=== PATIENT | female | born 1985 | race Caucasian/White ===

== ENCOUNTER 2016-07-26 15:11 | Emergency (ER) | payer MEDICAID ==
[2016-07-26] MEDS ORDERED: ONDANSETRON 4 MG/2 ML VIAL IVP STA (15:46)
[2016-07-26] MEDS ORDERED: ACETAMINOPHEN IV (For NPO) 1,000 MG in SALINE 100 100ML.BAG IVPB STA (15:46)
[2016-07-26] MEDS ORDERED: SODIUM CHLORIDE 0.9% 1,000 ML IV STA ×2 (15:46)
--- NOTE | 2016-07-26 15:50 | ED ---
General Adult HPI - General Chief complaint: Nausea/Vomiting/Diarrhea Stated complaint: poss pneumonia/abdominal pain Time Seen by Provider: 07/26/16 15:39 Source: patient, RN notes reviewed Mode of arrival: ambulatory Limitations: no limitations - History of Present Illness Initial comments: Patient is a 31-year-old female who presents emergency room today with a chief complaint of fever and chills. Patient does admit that yesterday she was sick with symptoms of nausea and diarrhea. States multiple episodes of loose stool. States a few episodes of diarrhea this morning. States still feeling somewhat nauseated. States that she feels somewhat congested in her chest but has not had a cough. Does admit some sinus drainage. Denies any sore throat or ear pain. Patient does admit to chills. Denies any other complaints. Patient denies any shortness of breath, chest pain, back pain, vomiting, numbness or tingling, dysuria or hematuria, constipation or diarrhea, headaches or visual changes, or any other complaints. - Related Data Home Medications Medication Instructions Recorded Confirmed Ascorbic Acid [Vitamin C] 500 mg PO DAILY 07/26/16 07/26/16 Cranberry Fruit Concentrate 450 mg PO DAILY 07/26/16 07/26/16 [Cranberry] Lydia 500 mg PO DAILY 07/26/16 07/26/16 Previous Rx's Medication Instructions Recorded Ondansetron Odt [Zofran ODT] 4 mg PO Q8HR PRN #20 tab 07/26/16 Allergies Allergy/AdvReac Type Severity Reaction Status Date / Time Sulfa (Sulfonamide Allergy Rash/Hives Verified 07/26/16 16:10 Antibiotics) Review of Systems ROS Statement: Those systems with pertinent positive or pertinent negative responses have been documented in the HPI. ROS Other: All systems not noted in ROS Statement are negative. Past Medical History Past Medical History: No Reported History History of Any Multi-Drug Resistant Organisms: None Reported Past Surgical History: No Surgical Hx Reported Past Psychological History: No Psychological Hx Reported Smoking Status: Never smoker Past Alcohol Use History: None Reported Past Drug Use History: None Reported General Exam - General Exam Comments Initial Comments: General: The patient is awake and alert, in no distress, and does not appear acutely ill. Eye: Pupils are equal, round and reactive to light, extra-ocular movements are intact. No nystagmus. There is normal conjunctiva bilaterally. No signs of icterus. Ears, nose, mouth and throat: There are moist mucous membranes and no oral lesions. Neck: The neck is supple, there is no tenderness or JVD. Cardiovascular: There is a regular rate and rhythm. No murmur, rub or gallop is appreciated. Respiratory: Lungs are clear to auscultation, respirations are non-labored, breath sounds are equal. No wheezes, stridor, rales, or rhonchi. Gastrointestinal: No appearance exam. Normal bowel sounds. Soft on palpation. Patient does have mild tenderness to the epigastrium. No rebound tenderness. No guarding. No CVA tenderness. Musculoskeletal: Normal ROM, no tenderness. Strength 5/5. Sensation intact. Pulses equal bilaterally 2+. Neurological: A&O x 3. CN II-XII intact, There are no obvious motor or sensory deficits. Coordination appears grossly intact. Speech is normal. Skin: Skin is warm and dry and no rashes or lesions are noted. Psychiatric: Cooperative, appropriate mood & affect, normal judgment. Limitations: no limitations Course Vital Signs 07/26/16 07/26/16 15:18 17:06 Temperature 101.5 F H 98.8 F Pulse Rate 102 H 96 Respiratory 20 16 Rate Blood Pressure 133/77 111/59 O2 Sat by Pulse 98 96 Oximetry Medical Decision Making - Medical Decision Making Patient reexamined at this time shows no signs of distress. Her labs been reviewed. White count 11,000. Patient does admit to diarrhea yesterday. Patient feeling better at this time. Abdomen soft nontender. Denies any nausea. Denies any abdominal pain. Denies any chest pain or congestion. Chest x-ray negative. X-ray of the abdomen reviewed are unremarkable. Influenza negative. Patient's urinalysis no sign of infection but 4+ ketones. Patient given proximally 2 L of fluids here in the emergency room. Patient will be discharged home and she is feeling better at this time. She is advised to continue Tylenol or ibuprofen for any fevers. Temperature recheck at this time is 98.8F. Patient will be discharged advised follow-up the family doctor over the next 2 days. Patient advised return here to emergency room if any symptoms increase or worsen or for any other concerns. She'll be discharged home with Zofran for her symptoms. Advised to increase oral fluids. Patient states understanding and is in agreement. - Lab Data Result diagrams: 07/26/16 16:10 07/26/16 16:10 Lab Results 07/26/16 07/26/16 07/26/16 Range/Units 15:45 16:10 16:10 WBC 11.1 H (3.8-10.6) k/uL RBC 4.66 (3.80-5.40) m/uL Hgb 14.9 (11.4-16.0) gm/dL Hct 44.8 (34.0-46.0) % MCV 96.1 (80.0-100.0) fL MCH 31.9 (25.0-35.0) pg MCHC 33.2 (31.0-37.0) g/dL RDW 12.1 (11.5-15.5) % Plt Count 156 (150-450) k/uL Neutrophils % 86 % Lymphocytes % 8 % Monocytes % 5 % Eosinophils % 0 % Basophils % 0 % Neutrophils # 9.6 H (1.3-7.7) k/uL Lymphocytes # 0.9 L (1.0-4.8) k/uL Monocytes # 0.6 (0-1.0) k/uL Eosinophils # 0.0 (0-0.7) k/uL Basophils # 0.0 (0-0.2) k/uL Sodium 141 (137-145) mmol/L Potassium 3.5 (3.5-5.1) mmol/L Chloride 103 (98-107) mmol/L Carbon Dioxide 24 (22-30) mmol/L Anion Gap 14 mmol/L BUN 11 (7-17) mg/dL Creatinine 0.60 (0.52-1.04) mg/dL Est GFR (MDRD) Af Amer >60 (>60 ml/min/1.73 sqM) Est GFR (MDRD) Non-Af >60 (>60 ml/min/1.73 sqM) Glucose 82 (74-99) mg/dL Calcium 9.3 (8.4-10.2) mg/dL Total Bilirubin 0.9 (0.2-1.3) mg/dL AST 24 (14-36) U/L ALT 27 (9-52) U/L Alkaline Phosphatase 62 (38-126) U/L Total Protein 7.9 (6.3-8.2) g/dL Albumin 4.6 (3.5-5.0) g/dL Amylase <30 L (30-110) U/L Lipase 29 (23-300) U/L Urine Color Urine Appearance (Clear) Urine pH (5.0-8.0) Ur Specific Olin (1.001-1.035) Urine Protein (Negative) Urine Glucose (UA) (Negative) Urine Ketones (Negative) Urine Blood (Negative) Urine Nitrate (Negative) Urine Bilirubin (Negative) Urine Urobilinogen (<2.0) mg/dL Ur Leukocyte Esterase (Negative) Urine RBC (0-5) /hpf Urine WBC (0-5) /hpf Ur Squamous Epith Cells (0-4) /hpf Amorphous Sediment (None) /hpf Hyaline Casts (0-2) /lpf Urine Mucus (None) /hpf Urine HCG, Qual (Not Detectd) Influenza Type A RNA Not Detected (Not Detectd) Influenza Type B (PCR) Not Detected (Not Detectd) 07/26/16 07/26/16 Range/Units 16:10 16:10 WBC (3.8-10.6) k/uL RBC (3.80-5.40) m/uL Hgb (11.4-16.0) gm/dL Hct (34.0-46.0) % MCV (80.0-100.0) fL MCH (25.0-35.0) pg MCHC (31.0-37.0) g/dL RDW (11.5-15.5) % Plt Count (150-450) k/uL Neutrophils % % Lymphocytes % % Monocytes % % Eosinophils % % Basophils % % Neutrophils # (1.3-7.7) k/uL Lymphocytes # (1.0-4.8) k/uL Monocytes # (0-1.0) k/uL Eosinophils # (0-0.7) k/uL Basophils # (0-0.2) k/uL Sodium (137-145) mmol/L Potassium (3.5-5.1) mmol/L Chloride (98-107) mmol/L Carbon Dioxide (22-30) mmol/L Anion Gap mmol/L BUN (7-17) mg/dL Creatinine (0.52-1.04) mg/dL Est GFR (MDRD) Af Amer (>60 ml/min/1.73 sqM) Est GFR (MDRD) Non-Af (>60 ml/min/1.73 sqM) Glucose (74-99) mg/dL Calcium (8.4-10.2) mg/dL Total Bilirubin (0.2-1.3) mg/dL AST (14-36) U/L ALT (9-52) U/L Alkaline Phosphatase (38-126) U/L Total Protein (6.3-8.2) g/dL Albumin (3.5-5.0) g/dL Amylase (30-110) U/L Lipase (23-300) U/L Urine Color Yellow Urine Appearance Cloudy H (Clear) Urine pH 5.5 (5.0-8.0) Ur Specific Olin 1.030 (1.001-1.035) Urine Protein 1+ H (Negative) Urine Glucose (UA) Negative (Negative) Urine Ketones 4+ H (Negative) Urine Blood Negative (Negative) Urine Nitrate Negative (Negative) Urine Bilirubin Negative (Negative) Urine Urobilinogen 2.0 (<2.0) mg/dL Ur Leukocyte Esterase Negative (Negative) Urine RBC 2 (0-5) /hpf Urine WBC 2 (0-5) /hpf Ur Squamous Epith Cells 6 H (0-4) /hpf Amorphous Sediment Occasional H (None) /hpf Hyaline Casts 3 H (0-2) /lpf Urine Mucus Many H (None) /hpf Urine HCG, Qual Not Detected (Not Detectd) Influenza Type A RNA (Not Detectd) Influenza Type B (PCR) (Not Detectd) Disposition Clinical Impression: Acute diarrhea Disposition: HOME SELF-CARE Condition: Good Instructions: Acute Diarrhea (ED) Additional Instructions: Please use medication as discussed. Please follow-up with family doctor in the next 2 days of symptoms have not improved. Please return to emergency room if the symptoms increase or worsen or for any other concerns. Prescriptions: Ondansetron Odt [Zofran ODT] 4 mg PO Q8HR PRN #20 tab PRN Reason: Nausea Time of Disposition: 17:54
[2016-07-26 16:35] LABS: Amorphous Sediment,Urine Occasional /hpf; Appearance,Urine Cloudy (Clear); Bilirubin,Urine Negative (Negative); Glucose,Urine (UA) Negative (Negative); Ketones,Urine 4+ (Negative); Leukocyte Esterase,Urine Negative (Negative); Mucus,Urine Many /hpf; Nitrite,Urine Negative (Negative); PH, Urine 5.5 (5.0-8.0); Particle Count 7541; Protein,Urine 1+ (Negative); RBC,Urine 2 /hpf (0-5); Squamous Epithelial Cell,Urine 6 /hpf (0-4); UA Billing (MACRO vs. MICRO) MICRO; WBC,Urine 2 /hpf (0-5)
--- NOTE | 2016-07-26 16:38 | XR ---
EXAMINATION TYPE: XR chest 2V DATE OF EXAM: 07/26/2016 4:35 PM COMPARISON: NONE HISTORY: Shortness of breath TECHNIQUE: Frontal and lateral views of the chest are obtained. FINDINGS: There is no focal air space opacity, pleural effusion, or pneumothorax seen. The cardiac silhouette size is within normal limits. The osseous structures are intact. IMPRESSION: No acute cardiopulmonary process.
[2016-07-26 16:39] LABS: ALT 27 U/L (9-52); AST 24 U/L (14-36); Alkaline Phosphatase 62 U/L (38-126); Amylase <30 U/L (30-110); Anion Gap 14 mmol/L; Basophils % (A) 0 %; Blood Urea Nitrogen 11 mg/dL (7-17); CH 32.5; CHCM 33.9; Calcium 9.3 mg/dL (8.4-10.2); Carbon Dioxide 24 mmol/L (22-30); Chloride 103 mmol/L (98-107); Eosinophils % (A) 0 %; Glucose 82 mg/dL (74-99); HCT 44.8 % (34.0-46.0); HDW 2.24; HGB 14.9 gm/dL (11.4-16.0); Luc # (Auto) 0.08; Luc % (Auto) 1; Lymphocytes # (A) 0.9 k/uL (1.0-4.8); Lymphocytes % (A) 8 %; MCH 31.9 pg (25.0-35.0); MCHC 33.2 g/dL (31.0-37.0); MCV 96.1 fL (80.0-100.0); Mean Platelet Volume 7.4; Monocytes # (A) 0.6 k/uL (0-1.0); Monocytes % (A) 5 %; Neutrophils # (A) 9.6 k/uL (1.3-7.7); Neutrophils % (A) 86 %; Non-African American GFR(MDRD) >60 (>60 ml/min/1.73 sqM); Potassium 3.5 mmol/L (3.5-5.1); RBC 4.66 m/uL (3.80-5.40); RDW 12.1 % (11.5-15.5); Sodium 141 mmol/L (137-145); Total Bilirubin 0.9 mg/dL (0.2-1.3); Total Protein 7.9 g/dL (6.3-8.2); WBC 11.1 k/uL (3.8-10.6); WBC (Perox) 10.97
--- NOTE | 2016-07-26 16:39 | XR ---
EXAMINATION TYPE: XR KUB DATE OF EXAM: 07/26/2016 4:35 PM COMPARISON: NONE HISTORY: Pain TECHNIQUE: Single supine KUB image of the abdomen is obtained FINDINGS: Small bowel demonstrates no evidence for dilatation or air fluid levels. Gas and fecal material is seen in non-distended colon. No convincing evidence for pneumoperitoneum. No unusual calcifications. The lung bases are clear. The osseous structures are intact. IMPRESSION: 1. Overall nonobstructive bowel gas pattern.
[2016-07-26 18:33] VITALS: BP 105/56; PULSE 52; RESP 16; TEMP 98
== END 2016-07-26 18:31 | disposition home or self-care (01) ==
LOC: EC 15:11
DX: R19.7 Diarrhea, unspecified (principal); R10.13 Epigastric pain; R50.9 Fever, unspecified; R11.0 Nausea; Z79.899 Other long term (current) drug therapy; Z88.2 Allergy status to sulfonamides
CPT/HCPCS: 36415; 80053; 82150; 83690; 85025; 81001; 81025; 87040; 87086; 87077; 87186; 87502; 71020; 74000; 99284; 96374; 96375; 96361 ×2; J2405; J0131

== ENCOUNTER → 2019-08-02 | Outpatient (CLI) | payer OTHER ==
--- NOTE | 2019-08-02 09:00 | US ---
"EXAMINATION TYPE: Transabdominal DATE OF EXAM: 08/02/2019 8:17 AM COMPARISON: NONE CLINICAL HISTORY: O76 abnormality in heart rate and rhythm. Patient was told yesterday that the re was no heart tones at another facility. Bleeding EXAM PERFORMED: Transvaginal (TV) and Transabdominal (TA) EXAM MEASUREMENTS: GESTATIONAL AGE / DATING Physician Established: Not yet established Dates by LMP: Unsure Dates by First Scan: No scan at this facility Dates by Current Scan for: (8 weeks/4 days) EDC: demise MATERNAL ANATOMY Uterus: 12.5 x 5.5 x 9.4 cm Right Ovary: 2.2 x 1.8 x 1.6 cm Left Ovary: 2.1 x 2.0 x 1.2 cm Post CDS / Adnexa: wnl Presence of free fluid: No Presence of corpus luteal cyst: Yes, right ovary measuring 1.5 cm Presence of subchorionic bleed: No GESTATION / SURVEY CRL: 1.9 cm (8 weeks/4 days) Yolk Sac (normal less than 6mm): 3 mm IUP: Demise demise measuring 8 weeks/4 days IMPRESSION: 1. pole measures 8 weeks 4 days gestation based on the current crown-rump length. No cardiac ac tivity is observed findings can be compatible with intrauterine demise. A Yellow level critical message alert has been initiated for Yobani Tejada MD via the [employer] 36 0 | Critical Results System on 08/02/2019 8:58 AM. This message alert has been sent to Yobani Tejada MD via the preferences provided by the clinician for the receipt of Radiology Critical Findings. [facility] ID [id number]."
== END | disposition home or self-care (01) ==
LOC: RADUSWWP 07:42
PROVIDERS: ATTEND Obstetrics & Gynecology
DX: O76 Abnormality in fetal heart rate and rhythm complicating labor and delivery (principal); Z3A.08 8 weeks gestation of pregnancy
CPT/HCPCS: 76801; 76817

== ENCOUNTER → 2019-08-06 | Outpatient (CLI) | payer OTHER ==
--- NOTE | 2019-08-06 15:11 | US ---
EXAMINATION TYPE: Transabdominal DATE OF EXAM: 08/06/2019 2:52 PM COMPARISON: US CLINICAL HISTORY: 046.91 Bleeding. Pt states heavy bleeding, passing clots and tissue EXAM PERFORMED: Transabdominal (TA) EXAM MEASUREMENTS: GESTATIONAL AGE / DATING Physician Established: Not established Dates by LMP: (7 weeks/1 days) EDC: 03/23/2020 Dates by First Scan: (9 weeks/2 days) Dates by Current Scan for: No IUP seen at this time MATERNAL ANATOMY Uterus: 11.9 x 6.1 x 6.9 cm Right Ovary: 2.4 x 2.0 x 2.1 cm Left Ovary: 2.2 x 1.8 x 1.8 cm Post CDS / Adnexa: wnl Presence of free fluid: No GESTATION / SURVEY IUP: No IUP seen at this time, endometrium thickened and heterogeneous= 2.1 cm thick/ area of increa sed blood flow fundal portion of endometrium Results called to Bryan at Dr's office at time of exam IMPRESSION: The endometrium is thickened measuring 2.1 cm with hypervascular flow. Consider endometri oid is or retained products of conception in this patient with recent spontaneous .
[2019-08-06 15:57] LABS: Basophils % (A) 0 %; Eosinophils # (A) 0.1 k/uL (0-0.7); Eosinophils % (A) 1 %; HCT 36.2 % (34.0-46.0); HGB 11.8 gm/dL (11.4-16.0); Lymphocytes # (A) 2.4 k/uL (1.0-4.8); Lymphocytes % (A) 33 %; MCH 31.9 pg (25.0-35.0); MCHC 32.6 g/dL (31.0-37.0); MCV 97.8 fL (80.0-100.0); Mean Platelet Volume 7.7; Monocytes # (A) 0.3 k/uL (0-1.0); Monocytes % (A) 4 %; Neutrophils # (A) 4.5 k/uL (1.3-7.7); Neutrophils % (A) 61 %; Platelet Count 193 k/uL (150-450); RDW 11.9 % (11.5-15.5); WBC 7.5 k/uL (3.8-10.6)
== END | disposition home or self-care (01) ==
LOC: RADUSWWP 14:30
PROVIDERS: ATTEND Obstetrics & Gynecology
DX: O03.9 Complete or unspecified spontaneous abortion without complication (principal)
CPT/HCPCS: 76801; 84702; 85025; 86850; 86870; 86880; 86900; 86901

== ENCOUNTER 2023-07-17 10:02 | Inpatient (IN) | payer OTHER ==
[2023-07-17] MEDS ORDERED: METHYLERGONOVINE 0.2 MG/ML 1 ML AMP IM PRN (11:26)
[2023-07-17] MEDS ORDERED: CARBOPROST TROMETHAMINE 250 MCG/ML 1 ML AMP IM PRN (11:26)
[2023-07-17] MEDS ORDERED: TRANEXAMIC 1,000 MG/100ML-NACL 1,000 MG in EMPTY BAG 1 BAG IV PRN (11:26)
[2023-07-17] MEDS ORDERED: miSOPROStoL 200 MCG TAB PO PRN (11:26)
[2023-07-17] MEDS ORDERED: LIDOCAINE 0.5% (PF) 5 MG/ML (50 ML SDV) SQ PRN (11:26)
[2023-07-17] MEDS ORDERED: TERBUTALINE 1 MG/ML VIAL SQ PRN (11:26)
[2023-07-17] MEDS ORDERED: OXYTOCIN 10 UNIT/ML 1 ML VIAL IM PRN (11:26)
[2023-07-17] MEDS ORDERED: NALBUPHINE 10 MG/ML (10 ML MDV) IV PRN (11:29)
[2023-07-17] MEDS: LACTATED RINGERS 1,000 ML IV SCH (11:30)
[2023-07-17] MEDS ORDERED: OXYTOCIN 30 UNITS/500 ML NS 30 UNIT in SALINE 1 500ML.BAG IV SCH (11:30)
[2023-07-17 12:27] LABS: Basophils % (A) 0 %; Eosinophils % (A) 0 %; HCT 39.3 % (34.0-46.0); Lymphocytes # (A) 1.6 k/uL (1.0-4.8); Lymphocytes % (A) 19 %; MCH 31.6 pg (25.0-35.0); MCHC 33.2 g/dL (31.0-37.0); MCV 95.2 fL (80.0-100.0); Mean Platelet Volume 10.8; Monocytes # (A) 0.3 k/uL (0-1.0); Monocytes % (A) 4 %; Neutrophils # (A) 6.4 k/uL (1.3-7.7); Neutrophils % (A) 75 %; Platelet Count 141 k/uL (150-450); RBC 4.12 m/uL (3.80-5.40); RDW 13.5 % (11.5-15.5); WBC 8.6 k/uL (3.8-10.6)
[2023-07-17] MEDS: OXYTOCIN 30 UNITS/500 ML NS 30 UNIT in SALINE 1 500ML.BAG IV SCH (12:40)
[2023-07-17] MEDS ORDERED: ACETAMINOPHEN TAB 325 MG TAB PO PRN (12:50)
[2023-07-17] MEDS ORDERED: diphenhydrAMINE 25 MG CAP PO PRN (12:50)
[2023-07-17] MEDS ORDERED: SIMETHICONE 80 MG CHEWABLE PO PRN (12:50)
[2023-07-17] MEDS ORDERED: ZOLPIDEM 5 MG TAB PO PRN (12:50)
[2023-07-17] MEDS ORDERED: BENZOCAINE/MENTHOL SPRAY 1 GM/SPRAY AEROSOL TOPICAL PRN (12:50)
[2023-07-17] MEDS ORDERED: diphenhydrAMINE 50 MG CAP PO PRN (12:50)
[2023-07-17] MEDS ORDERED: HYDROCORTISONE 2.5% RECTAL CREAM 30 GM TUBE RECTAL PRN (12:50)
[2023-07-17] MEDS ORDERED: diphenhydrAMINE 50 MG/ML 1 ML VIAL IVP PRN ×2 (12:50)
[2023-07-17] MEDS ORDERED: LANOLIN CREAM 5 GM TUBE TOPICAL PRN (12:50)
--- NOTE | 2023-07-17 12:52 | P.HPOB ---
History of Present Illness H&P Date: 07/17/23 Chief Complaint: 41 weeks, labor This is a 38-year-old 5 para 4-0-0-4 at 41-0/7 weeks who presents to labor and delivery with complaints of contractions. Patient stated contractions began early this morning and became more regular therefore she headed into the hospital for evaluation. Patient was noted to be 4 to 5 cm upon admission. Patient noted good movement, questionable rupture of membranes with positive AmniSure in triage. care has been essentially uncomplicated, on blood work this blood patient is a blood type of a negative, rubella status immune, hepatitis B surface engine negative, HIV negative, RPR is nonreactive, group B strep culture was negative. Review of Systems Constitutional: Denies chills, Denies fatigue, Denies fever Ears, nose, mouth and throat: Denies headache Cardiovascular: Denies leg edema Respiratory: Denies dyspnea Gastrointestinal: Denies nausea, Denies vomiting Genitourinary: Reports Past Medical History Past Medical History: Diabetes Mellitus, No Reported History Additional Past Medical History / Comment(s): gestational diabetes History of Any Multi-Drug Resistant Organisms: ESBL, None Reported Date of last positivie culture/infection: 07/26/16 E. coli ESBL MDRO Source:: Urine Past Surgical History: No Surgical Hx Reported Past Anesthesia/Blood Transfusion Reactions: No Reported Reaction Past Psychological History: No Psychological Hx Reported Smoking Status: Never smoker Past Alcohol Use History: None Reported, Rare Past Drug Use History: None Reported - Past Family History Mother Family Medical History: Diabetes Mellitus Additional Family Medical History / Comment(s): A-fib Medications and Allergies Home Medications Medication Instructions Recorded Confirmed Type Pnv No.95/Ferrous Fum/Folic AC 1 each PO DAILY 08/03/19 07/17/23 History [ Multivitamin Tablet] Allergies Allergy/AdvReac Type Severity Reaction Status Date / Time Sulfa (Sulfonamide Allergy Rash/Hives Verified 06/21/23 14:36 Antibiotics) Exam Osteopathic Statement: *. No significant issues noted on an osteopathic st ructural exam other than those noted in the History and Physical/Consult. Vital Signs Temp Pulse Resp BP Pulse Ox 07/17/23 10:32 97.2 F L 93 16 153/95 97 Intake and Output 07/16/23 07/17/23 07/17/23 22:59 06:59 14:59 Other: Weight 78.471 kg Targeted physical exam is performed in the state General is a well-nourished well-developed female with labor, breathing appears nonlabored, abdomen is gravid and appropriate for gestational age, on cervical exam she is 9 cm a bulging bag of fluid is appreciated and amniotomy is performed revealing clear fluid. heart tones are noted to be category 1 and she is milagro every 2 to 3 minutes. Results Result Diagrams: 07/17/23 12:14 Assessment and Plan (1) Post-dates Current Visit: Yes Status: Acute Code(s): O48.0 - POST-TERM SNOMED Code(s): 78621253 Plan: 38-year-old G5, P4 at 41-0/7 weeks presents with regular painful contractions, after active labor. Patient is admitted with expectant management. Options for analgesia are discussed and she will consider. Anticipate spontaneous vaginal delivery.
--- NOTE | 2023-07-17 12:55 | P.PROBDLV ---
Vaginal Delivery Note - . Vaginal Delivery Note: Findings: viable male infant delivered at 1240, weight of 7 pounds 15 ounces, Apgars of 9 and 9 at 1 and 5 minutes respectively. 38-year-old 5 para 3-0-1-3 that presented to labor and delivery at 41- 0/7 weeks with complaints of regular painful contraction and spontaneous rupture of membranes around 5 AM. Patient was admitted to labor and delivery, AmniSure was noted to be positive with confirmation of rupture of membranes. Patient declined analgesia progressed to 9 cm bulging bag of water was appreciated amniotomy was performed and clear fluid was obtained. Patient progressed quickly to complete began pushing and had a normal spontaneous vaginal delivery of a viable male infant at 1240, loose nuchal cord was appreciated and delivered through. Continuous cry was noted at . Weight of 7 pounds 15 ounces, Apgars of 9 and 9 at 1 and 5 minutes respectively. After 2-minute delay the umbilical cord was doubly clamped and cut and the placenta was delivered spontaneously intact with a three-vessel cord being noted. On inspection the patient's vaginal vault a small perineal laceration was appreciated this was injected with lidocaine and repaired with 1 [id number] suture of 0 Vicryl. Hemostasis was appreciated after closure. Uterus is noted to be firm and below the umbilicus. All counts were to be correct x 2. Patient and tolerated delivery well and resting comfortably.
[2023-07-17] MEDS: IBUPROFEN 600 MG TAB PO SCH (17:40)
[2023-07-17] MEDS: SENNOSIDES-DOCUSATE SODIUM 1 EACH TAB PO SCH (20:05)
[2023-07-18] MEDS: PRENATAL VIT-IRON-FOLIC ACID 1 EACH TABLET PO SCH (08:41)
--- NOTE | 2023-07-18 09:28 | P.DS ---
Providers Date of admission: 07/17/23 11:01 Expected date of discharge: 07/18/23 Attending physician: Yobani Tejada Primary care physician: Stated None - Discharge Diagnosis(es) (1) Post-dates Current Visit: Yes Status: Acute (2) Normal spontaneous vaginal delivery Current Visit: No Status: Acute Hospital Course: The patient is a 38-year-old 5 para 4004 admitted at 41-0/7 weeks by good dating parameters in active labor. Her has been uncomplicated and she has had reassuring testing following her due date. She presents with all signs reassuring, category 1 heart rate tracing in labor with positive for rupture of membranes for clear fluid. On labor and delivery, she progressed quickly to complete and pushed to a normal spontaneous vaginal delivery of a viable 7 lbs. 15 oz. baby boy with Apgars of 9 at 1 minute and 9 at 5 in its. Her course was unremarkable with vital signs being stable and her temperature was afebrile throughout. She was deemed stable for discharge on day #1 was discharged home to follow-up in the office in 6 weeks' time routinely. Discharge instructions included calling for any significantly increased bleeding or foul-smelling lochia, significantly increased fever abdominal pain, perineal complaints, breast complaints, or anything else that concerned her. She understood her instructions and agrees follow up as noted above. Discharge medications included continued vitamins as she has opted to breast-feed. She was otherwise to use [id number] analgesic pain medications as needed. Maternal blood type is Rh- and cord blood was sent for evaluation for the necessity of RhoGAM prior to discharge. Rubella status is immune. Procedures: #1. Normal spontaneous vaginal delivery Patient Condition at Discharge: Stable Plan - Discharge Summary New Discharge Prescriptions: No Action Pnv No.95/Ferrous Fum/Folic AC [ Multivitamin Tablet] 1 each PO DAILY Discharge Medication List Pnv No.95/Ferrous Fum/Folic AC [ Multivitamin Tablet] 1 each PO DAILY 08/03/19 [History] Follow up Appointment(s)/Referral(s): Yobani Tejada MD [STAFF PHYSICIAN] - 6 Weeks Discharge Disposition: HOME SELF-CARE
[2023-07-18 12:05] VITALS: BP 121/65; PULSE 81; RESP 16; TEMP 98.3
== END 2023-07-18 16:05 | disposition home or self-care (01) | DRG 560 ==
LOC: FBPOP 10:02 → 4FBP 11:01
PROVIDERS: ADMIT Obstetrics & Gynecology Obstetrics; ATTEND Obstetrics & Gynecology
PROC: 10E0XZZ Delivery of Products of Conception, External Approach (ICD-10-PCS; principal; 2023-07-17)
PROC: 0HQ9XZZ Repair Perineum Skin, External Approach (ICD-10-PCS; 2023-07-17)
DX: O48.0 Post-term pregnancy (principal); Z37.0 Single live birth; O24.420 Gestational diabetes mellitus in childbirth, diet controlled; O69.81X0 Labor and delivery complicated by cord around neck, without compression, not applicable or unspecified; O70.0 First degree perineal laceration during delivery; Z88.2 Allergy status to sulfonamides; Z87.891 Personal history of nicotine dependence; Z3A.41 41 weeks gestation of pregnancy
CPT/HCPCS: 59025; 84112; 85025; 86850; 86900; 86901; 99213

== ENCOUNTER 2024-05-16 19:45 | Emergency (ER) | payer OTHER ==
[2024-05-16 20:56] LABS: Appearance,Urine Turbid (Clear); Bacteria,Urine Many /hpf; Bilirubin,Urine Negative (Negative); Blood,Urine Large (Negative); Color,Urine Yellow; Glucose,Urine (UA) Negative (Negative); Ketones,Urine 1+ (Negative); Leukocyte Esterase,Urine Large (Negative); Mucus,Urine Moderate /hpf; Nitrite,Urine Positive (Negative); PH, Urine 5.5 (5.0-8.0); Protein,Urine 2+ (Negative); RBC,Urine >182 /hpf (0-5); Squamous Epithelial Cell,Urine 3 /hpf (0-4); Urobilinogen,Urine <2.0 mg/dL (<2.0); WBC,Urine >182 /hpf (0-5)
--- NOTE | 2024-05-16 21:36 | ED ---
Female Urogenital HPI - General Chief complaint: Urogenital Stated complaint: urogenital Time Seen by Provider: 05/16/24 20:12 Source: patient Mode of arrival: ambulatory Limitations: no limitations - History of Present Illness Initial comments: 39-year-old female presenting with concern for UTI. Patient reports that 2 weeks ago she had some burning with urination, states that she was drinking cranberry juice and thought it would go away. Now patient is having burning with urination as well as hematuria and lower back pain. She is having some nausea, no vomiting. No fever. No diarrhea. - Related Data Home Medications Medication Instructions Recorded Confirmed Pnv No.95/Ferrous Fum/Folic AC 1 each PO DAILY 08/03/19 07/17/23 [ Multivitamin Tablet] Previous Rx's Medication Instructions Recorded Cephalexin [Keflex] 500 mg PO Q6HR 10 Days #40 cap 05/16/24 Allergies Allergy/AdvReac Type Severity Reaction Status Date / Time Sulfa (Sulfonamide Allergy Rash/Hives Verified 05/16/24 19:55 Antibiotics) Review of Systems ROS Statement: Those systems with pertinent positive or pertinent negative responses have been documented in the HPI. ROS Other: All systems not noted in ROS Statement are negative. Past Medical History Past Medical History: Diabetes Mellitus, No Reported History Additional Past Medical History / Comment(s): gestational diabetes History of Any Multi-Drug Resistant Organisms: ESBL, None Reported Date of last positivie culture/infection: 07/26/16 E. coli ESBL MDRO Source:: Urine Past Surgical History: No Surgical Hx Reported Past Anesthesia/Blood Transfusion Reactions: No Reported Reaction Past Psychological History: No Psychological Hx Reported Smoking Status: Never smoker Past Alcohol Use History: Rare Past Drug Use History: None Reported - Past Family History Mother Family Medical History: Diabetes Mellitus Additional Family Medical History / Comment(s): A-fib General Exam Limitations: no limitations General appearance: alert, in no apparent distress Head exam: Present: atraumatic, normocephalic, normal inspection Eye exam: Present: normal appearance, EOMI Neck exam: Present: normal inspection. Absent: meningismus Respiratory exam: Present: normal lung sounds bilaterally. Absent: respiratory distress, wheezes, rales, rhonchi, stridor Cardiovascular Exam: Present: regular rate, normal rhythm, normal heart sounds. Absent: systolic murmur, diastolic murmur, rubs, gallop, clicks GI/Abdominal exam: Present: soft. Absent: distended, tenderness, guarding, rebound, rigid Extremities exam: Present: normal inspection Back exam: Present: normal inspection. Absent: CVA tenderness (R), CVA tenderness (L) Neurological exam: Present: alert, oriented X3 Psychiatric exam: Present: normal affect, normal mood Skin exam: Present: warm, dry Course Vital Signs 05/16/24 05/16/24 19:51 21:52 Temperature 98.3 F 98.1 F Pulse Rate 99 92 Respiratory 16 17 Rate Blood Pressure 102/63 105/65 O2 Sat by Pulse 99 99 Oximetry Medical Decision Making - Medical Decision Making Was pt. sent in by a medical professional or institution (, [facility], FILM RENTAL CLERK, urgent care, hospital, or alf...) When possible be specific @ -No Did you speak to anyone other than the patient for history (EMS, parent, family, police, friend...)? What history was obtained from this source @ -No Did you review nursing and triage notes (agree or disagree)? Why? @ -I reviewed and agree with nursing and triage notes Were old charts reviewed (outside hosp., previous admission, EMS record, old EKG, old radiological studies, urgent care reports/EKG's, alf records)? Report findings @ -No old charts were reviewed Differential Diagnosis (chest pain, altered mental status, abdominal pain women, abdominal pain men, vaginal bleeding, weakness, fever, dyspnea, syncope, headache, dizziness, GI bleed, back pain, seizure, CVA, palpatations, mental health, musculoskeletal)? @ -Differential includes UTI, kidney stone, pyelonephritis, this is not an all- inclusive list EKG interpreted by me (3pts min.). @ -As above X-rays interpreted by me (1pt min.). @ -None done CT interpreted by me (1pt min.). @ -None done U/S interpreted by me (1pt. min.). @ -None done What testing was considered but not performed or refused? (CT, X-rays, U/S, labs)? Why? @ -None What meds were considered but not given or refused? Why? @ -None Did you discuss the management of the patient with other professionals (professionals i.e. Dr., PA, FILM RENTAL CLERK, lab, RT, psych nurse, social science research assistant, supercharge repair supervisor, teacher, special service officer, case repairer)? Give summary @ -No Was smoking cessation discussed for >3mins.? @ -No Was critical care preformed (if so, how long)? @ -No Were there social determinants of health that impacted care today? How? (Homelessness, low income, unemployed, alcoholism, drug addiction, transportation, low edu. Level, literacy, decrease access to med. care, longterm, rehab)? @ -No Was there de-escalation of care discussed even if they declined (Discuss DNR or withdrawal of care, Hospice)? DNR status @ -No What co-morbidities impacted this encounter? (DM, HTN, Smoking, COPD, CAD, Cancer, CVA, ARF, Chemo, Hep., AIDS, mental health diagnosis, sleep apnea, morbid obesity)? @ -None Was patient admitted / discharged? Hospital course, mention meds given and route, prescriptions, significant lab abnormalities, going to OR and other pertinent info. @ -23-year-old female presenting with chief complaint of UTI-like symptoms. History and physical examination are conducted. Urine is positive for leuko cytes, blood, and nitrites. Many bacteria are noted. hCG is negative. Urine is sent for culture. Patient is educated on today's findings. She has been given 1 g of Rocephin here in the ER, will be sent home on Keflex. Follow-up with PCP. Report back to ER with any new or worsening symptoms. Discussed return parameters and answered all questions. Patient conveyed verbal understanding and agreed to the plan. I discussed this case in detail with my attending Dr. Scruggs Undiagnosed new problem with uncertain prognosis? @ -No Drug Therapy requiring intensive monitoring for toxicity (Heparin, Nitro, Insulin, Cardizem)? @ -No Were any procedures done? @ -No Diagnosis/symptom? @ -UTI Acute, or Chronic, or Acute on Chronic? @ -Acute Uncomplicated (without systemic symptoms) or Complicated (systemic symptoms)? @ -Uncomplicated Side effects of treatment? @ -No Exacerbation, Progression, or Severe Exacerbation? @ -No Poses a threat to life or bodily function? How? (Chest pain, USA, ID, pneumonia, PE, COPD, DKA, ARF, appy, cholecystitis, CVA, Diverticulitis, Homicidal, Suicidal, threat to staff... and all critical care pts) @ -Potential with any infection, however low likelihood at this time - Lab Data Lab Results 05/16/24 05/16/24 Range/Units 20:27 20:27 Urine Color Yellow Urine Appearance Turbid H (Clear) Urine pH 5.5 (5.0-8.0) Ur Specific [place] 1.020 (1.001-1.035) Urine Protein 2+ H (Negative) Urine Glucose (UA) Negative (Negative) Urine Ketones 1+ H (Negative) Urine Blood Large H (Negative) Urine Nitrite Positive H (Negative) Urine Bilirubin Negative (Negative) Urine Urobilinogen <2.0 (<2.0) mg/dL Ur Leukocyte Esterase Large H (Negative) Urine RBC >182 H (0-5) /hpf Urine WBC >182 H (0-5) /hpf Urine WBC Clumps Many H (None) /hpf Ur Squamous Epith Cells 3 (0-4) /hpf Urine Bacteria Many H (None) /hpf Urine Mucus Moderate H (None) /hpf Urine HCG, Qual Not Detected (Not Detectd) Disposition Clinical Impression: Urinary tract infection Disposition: HOME SELF-CARE Condition: Good Instructions (If sedation given, give patient instructions): Urinary Tract Infection in Women (ED) Additional Instructions: Follow-up with PCP. Report back to ER with any new or worsening symptoms. Take medication as prescribed. Prescriptions: Cephalexin [Keflex] 500 mg PO Q6HR 10 Days #40 cap Is patient prescribed a controlled substance at d/c from ED?: No Referrals: Nonstaff,Physician [Primary Care Provider] - 1-2 days Time of Disposition: 21:35
[2024-05-16] MEDS: cefTRIAXone 1,000 MG VIAL (IM USE) IM STA (21:46)
[2024-05-16 21:54] VITALS: BP 105/65; PULSE 92; RESP 17; TEMP 98.1
== END 2024-05-16 22:00 | disposition home or self-care (01) ==
LOC: EC 19:45
DX: N39.0 Urinary tract infection, site not specified (principal); Z88.2 Allergy status to sulfonamides
CPT/HCPCS: 81001; 81025; 87086; 99283; 96372; J0696